=== PATIENT | female | born 1955 | race Caucasian/White ===

== ENCOUNTER 2016-10-10 08:47 | Day surgery (SDC) | payer BC ==
--- NOTE | ~2016-10-10 | EGD ---
EGD REPORT [facility] [address] [address] NAME: NAVDEEP VALENZUELA : 53 STATUS : REG [facility] PAT#: [id number] AGE: 60 ADM/REG DATE : 10/10/16 MR#: [id number] REPORT SERV DATE: 10/10/16 DICTATED BY: UZAIR MAYNARD DATE: 10/10/16 REPORT STATUS : Draft [facility]ANS[facility]IBED BY: [facility] DATE: 10/10/16 [facility] Patient Name: Navdeep Valenzuela Date of : 1955 Attending MD: UZAIR MAYNARD MD Procedure Date No Time: 10/10/2016 Procedure: Colonoscopy Indications: Abdominal pain in the left lower quadrant Referring MD: CATHY PARKS Medicines: Propofol per Anesthesia Complications: No immediate complications. Procedure: Pre-Anesthesia Assessment: - ASA Grade Assessment: II - A patient with mild systemic disease. After I obtained informed consent, the scope was passed under direct vision. Throughout the procedure, the patient's blood pressure, pulse, and oxygen saturations were monitored continuously. The CF [id number] was introduced through the anus and advanced to the cecum, identified by appendiceal orifice and ileocecal valve. The colonoscopy was performed without difficulty. The patient tolerated the procedure well. The quality of the bowel preparation was good. Findings: Multiple medium-mouthed diverticula were found in the recto-sigmoid colon and in the sigmoid colon. Diffuse mild inflammation characterized by erosions, erythema and friability was found in the recto-sigmoid colon and in the sigmoid colon. Biopsies were taken with a cold forceps for histology. The descending colon, splenic flexure, transverse colon, hepatic flexure, ascending colon and cecum appeared normal. The rest of the colon was normal. Impression: - Diverticulosis in the recto-sigmoid colon and in the sigmoid colon. - Diffuse mild inflammation was found in the recto-sigmoid colon and in the sigmoid colon secondary to proctosigmoid colitis. Biopsied. - The descending colon, splenic flexure, transverse colon, hepatic flexure, ascending colon and cecum are normal. Suspect mild UC and not diverticultis because of rectal involvement. EGD REPORT [address] [address] NAME: NAVDEEP VALENZUELA : 53 STATUS : REG [facility]#: [id number] AGE: 60 ADM/REG DATE : 10/10/16 MR#: [id number] REPORT SERV DATE: 10/10/16 DICTATED BY: UZAIR MAYNARD. DATE: 10/10/16 REPORT STATUS : Draft TRANSCRIBED BY: [employer] DATE: 10/10/16 Recommendation: - Discharge patient to home (ambulatory). - Return to my office in 3 weeks. review the biopsy report and check promethius test on follow up. Procedure Code(s): --- Professional --- 96395, Colonoscopy, flexible, proximal to splenic flexure; with biopsy, single or multiple Diagnosis Code(s): --- Professional --- K57.30, Diverticulosis of large intestine without perforation or abscess without bleeding K63.89, Other specified diseases of intestine R10.32, Left lower quadrant pain CPT copyright 2013 [employer]. All rights reserved. The codes documented in this report are preliminary and upon business professor review may be revised to meet current compliance requirements. Uzair Maynard MD UZAIR MAYNARD MD 10/10/2016 10:03 AM This report has been signed electronically. Number of Addenda: 0 Note Initiated On: 10/10/2016 9:31 AM Scope Withdrawal Time 0 hours 13 minutes 21 seconds [address] [address]
[~2016-10-10 08:47] MED LIST: ACET500CAP PO; ALEVE220 MG PO; AUG500 PO; ESTROGEN PATCH TD; IBU400 PO; LEVOTHYROXIN125 MCG PO; MOBIC15 MG PO; NEXIUM40 PO; PEP20 PO; PROMETRIUM PO; PROZAC PO; PROZAC40 MG PO; VITD PO; [UNRECOGNIZED DRUG - OTHER] TOP
== END 2016-10-10 23:59 | disposition home health service (06) ==
LOC: DMU 08:47
PROVIDERS: Internal Medicine Gastroenterology
PROC: 0DBN8ZX Excision of Sigmoid Colon, Via Natural or Artificial Opening Endoscopic, Diagnostic (ICD-10-PCS; principal; 2016-10-10 09:30)
DX: K52.9 Noninfective gastroenteritis and colitis, unspecified (principal); K57.30 Diverticulosis of large intestine without perforation or abscess without bleeding; K63.89 Other specified diseases of intestine; K21.9 Gastro-esophageal reflux disease without esophagitis; E03.9 Hypothyroidism, unspecified; F41.9 Anxiety disorder, unspecified; F32.9 Major depressive disorder, single episode, unspecified; M19.90 Unspecified osteoarthritis, unspecified site; Z90.49 Acquired absence of other specified parts of digestive tract; Z90.710 Acquired absence of both cervix and uterus; Z98.890 Other specified postprocedural states
CPT/HCPCS: 88305